=== PATIENT | female | born 1990 | race Caucasian/White ===

== ENCOUNTER 2025-03-25 09:20 | Emergency (ER) | payer OTHER | END 2025-03-25 10:07 | disposition home or self-care (01) | LOC: FB.ED 09:20 | DX: O20.9 Hemorrhage in early pregnancy, unspecified (principal); Z91.048 Other nonmedicinal substance allergy status; Z3A.09 9 weeks gestation of pregnancy | CPT/HCPCS: 81025; 99284 ==